=== PATIENT | male | born 1965 | race Two or more races ===

== ENCOUNTER → 2020-06-13 | Outpatient (CLI) | payer BC ==
[2020-06-13 08:40] LABS: CHLORIDE 105 mEq/L (98-107); EOSINOPHILS % 6.9 % (0.0-5.0); HEMATOCRIT. 42.6 % (42.0-52.0); HEMOGLOBIN. 14.5 g/dL (14.0-18.0); LYMPHOCYTES % 41.9 % (20.0-50.0); MEAN CORPUSCULAR HEMOGLOBIN 28.5 pg (28.0-32.0); MEAN CORPUSCULAR VOLUME 83.6 fL (80.0-94.0); MEAN PLATELET VOLUME 9.4 fl (7.4-10.4); MONOCYTES % 10.5 % (2.0-8.0); NEUTROPHILS % 39.7 % (40.0-76.0); PLATELET 184 x1000/uL (130-400); RED BLOOD CELL COUNT 5.09 mill/uL (4.7-6.1); RED CELL DISTRIBUTION WIDTH 13.3 % (11.6-14.6)
[2020-06-13 08:49] LABS: LDL CHOLESTEROL 115 mg/dL (5-100)
[2020-06-13 08:50] LABS: CREATINE KINASE 565 IU/L (39-308); HDL CHOLESTEROL 33 mg/dL (40-59); T4 FREE 0.86 ng/dL (0.76-1.46)
[2020-06-15 04:06] LABS: VITAMIN D 25-OH 29.6 ng/mL (30.0-100.0)
== END | disposition home or self-care (01) ==
LOC: LAB 07:13
DX: Z00.00 Encounter for general adult medical examination without abnormal findings (principal)
CPT/HCPCS: 36415; 80053; 80061; 82306; 82550; 83036; 84153; 84439; 84443; 84480; 84550; 85025; G0103

== ENCOUNTER → 2020-11-14 | Outpatient (CLI) | payer BC ==
[2020-11-14 07:59] LABS: CLARITY URINE CLEAR (CLEAR); COLOR URINE YELLOW (YELLOW); KETONES URINE NEGATIVE (NEGATIVE); LEUKOCYTE ESTERASE URINE NEGATIVE (NEGATIVE); NITRITE URINE NEGATIVE (NEGATIVE); OCCULT BLOOD URINE TRACE (NEGATIVE); PH URINE 6.5 (4.5-8.0); PROTEIN URINE NEGATIVE (NEGATIVE); SPECIFIC GRAVITY URINE 1.018 (1.005-1.030); UROBILINOGEN URINE 0.2 E.U./dL (0.2-1.0)
[2020-11-14 08:07] LABS: BASOPHILS % 1.1 % (0.0-2.0); EOSINOPHILS % 2.5 % (0.0-5.0); HEMATOCRIT. 43.4 % (42.0-52.0); HEMOGLOBIN. 15.1 g/dL (14.0-18.0); LYMPHOCYTES % 39.7 % (20.0-50.0); MEAN CORPUSCULAR HEMOGLOBIN 29.3 pg (28.0-32.0); MEAN CORPUSCULAR VOLUME 83.8 fL (80.0-94.0); MEAN PLATELET VOLUME 8.6 fl (7.4-10.4); MONOCYTES % 8.4 % (2.0-8.0); NEUTROPHILS % 48.3 % (40.0-76.0); PLATELET 218 x1000/uL (130-400); RED BLOOD CELL COUNT 5.18 mill/uL (4.7-6.1); RED CELL DISTRIBUTION WIDTH 13.6 % (11.6-14.6)
[2020-11-14 08:45] LABS: CHLORIDE 103 mEq/L (98-107)
[2020-11-14 09:01] LABS: CREATINE KINASE 530 IU/L (39-308); LDL CHOLESTEROL 147 mg/dL (5-100)
[2020-11-14 09:03] LABS: HDL CHOLESTEROL 31 mg/dL (40-59)
== END | disposition home or self-care (01) ==
LOC: LAB 06:15
DX: I10 Essential (primary) hypertension (principal)
CPT/HCPCS: 36415; 80053; 80061; 81003; 82248; 82550; 84153; 85025; G0103

== ENCOUNTER → 2021-01-21 | Outpatient (CLI) | payer BC ==
[2021-01-21 10:37] LABS: CLARITY URINE CLEAR (CLEAR); COLOR URINE YELLOW (YELLOW); KETONES URINE NEGATIVE (NEGATIVE); LEUKOCYTE ESTERASE URINE NEGATIVE (NEGATIVE); NITRITE URINE NEGATIVE (NEGATIVE); OCCULT BLOOD URINE NEGATIVE (NEGATIVE); PH URINE 7.5 (4.5-8.0); PROTEIN URINE NEGATIVE (NEGATIVE); SPECIFIC GRAVITY URINE 1.019 (1.005-1.030); UROBILINOGEN URINE 0.2 E.U./dL (0.2-1.0)
[2021-01-21 11:11] LABS: EOSINOPHILS % 3.1 % (0.0-5.0); HEMATOCRIT. 44.1 % (42.0-52.0); HEMOGLOBIN. 15.3 g/dL (14.0-18.0); LYMPHOCYTES % 46.7 % (20.0-50.0); MEAN CORPUSCULAR HEMOGLOBIN 28.7 pg (28.0-32.0); MEAN CORPUSCULAR VOLUME 82.9 fL (80.0-94.0); MEAN PLATELET VOLUME 9.5 fl (7.4-10.4); MONOCYTES % 8.5 % (2.0-8.0); NEUTROPHILS % 40.7 % (40.0-76.0); PLATELET 216 x1000/uL (130-400); RED BLOOD CELL COUNT 5.32 mill/uL (4.7-6.1); RED CELL DISTRIBUTION WIDTH 13.2 % (11.6-14.6)
[2021-01-21 11:20] LABS: CHLORIDE 106 mEq/L (98-107)
[2021-01-21 11:28] LABS: LDL CHOLESTEROL 142 mg/dL (5-100)
[2021-01-21 11:30] LABS: HDL CHOLESTEROL 32 mg/dL (40-59)
== END | disposition home or self-care (01) ==
LOC: LAB 10:01
DX: Z00.00 Encounter for general adult medical examination without abnormal findings (principal)
CPT/HCPCS: 36415; 80053; 80061; 81003; 84550; 85025

== ENCOUNTER → 2021-08-12 | Outpatient (CLI) | payer BC ==
[2021-08-12 08:16] LABS: BASOPHILS % 0.8 % (0.0-2.0); EOSINOPHILS % 2.6 % (0.0-5.0); HEMOGLOBIN. 15.4 g/dL (14.0-18.0); LYMPHOCYTES % 40.7 % (20.0-50.0); MEAN CORPUSCULAR HEMOGLOBIN 29.1 pg (28.0-32.0); MEAN CORPUSCULAR VOLUME 83.1 fL (80.0-94.0); MEAN PLATELET VOLUME 9.4 fl (7.4-10.4); MONOCYTES % 10.5 % (2.0-8.0); NEUTROPHILS % 45.4 % (40.0-76.0); PLATELET 194 x1000/uL (130-400); RED BLOOD CELL COUNT 5.29 mill/uL (4.7-6.1); RED CELL DISTRIBUTION WIDTH 13.6 % (11.6-14.6)
[2021-08-12 08:19] LABS: CHLORIDE 108 mEq/L (98-107)
[2021-08-12 08:27] LABS: HDL CHOLESTEROL 33 mg/dL (40-59)
[2021-08-12 08:30] LABS: CREATINE KINASE 365 IU/L (39-308)
[2021-08-12 08:32] LABS: LDL CHOLESTEROL 153 mg/dL (5-100)
[2021-08-12 08:33] LABS: C REACTIVE PROTEIN QUANT 2.5 mg/L (0.0-3.0)
[2021-08-12 08:36] LABS: AMYLASE 48 IU/L (25-115)
[2021-08-12 08:37] LABS: T4 FREE 0.96 ng/dL (0.76-1.46)
[2021-08-12 08:42] LABS: TOTAL IRON BINDING CAPACITY 337 ug/dL (250-450)
[2021-08-12 08:43] LABS: CORTISOL 15.5 ucg/dL; FERRITIN 57 ng/mL (22-322)
[2021-08-12 08:44] LABS: PROSTRATE SPECIFIC AG TOTAL 3.12 ng/mL (0.0-4.0)
[2021-08-12 08:48] LABS: VITAMIN B12 SERUM 272 pg/mL (211-911)
[2021-08-12 08:59] LABS: FOLIC ACID (FOLATE) SERUM > 20.00 ng/mL (>5.38)
[2021-08-13 09:07] LABS: % FREE PSA 22.1 % (.); HOMOCYSTEINE PLASMA 11.2 umol/L (0.0-14.5); PROSTATE SPECIFIC AG TOTAL 3.8 ng/mL (0.0-4.0); PSA FREE 0.84 ng/mL; VITAMIN D 25-OH 39.6 ng/mL (30.0-100.0)
[2021-08-14 19:10] LABS: HUMAN GROWTH HORMONE < 0.1 ng/mL (0.0-10.0); INSULIN-LIKE GROWTH FACTOR 1 191 ng/mL (68-247)
== END | disposition home or self-care (01) ==
LOC: LAB 06:08
DX: Z00.01 Encounter for general adult medical examination with abnormal findings (principal)
CPT/HCPCS: 36415; 80053; 80061; 82150; 82248; 82306; 82533; 82550; 82607; 82626; 82728; 82746; 83003; 83036; 83090; 83525; 83540; 83550; 83695; 83735; 84153; 84154; 84305; 84402; 84439; 84443; 84481; 84550; 85025; 86140; G0103

== ENCOUNTER → 2021-09-30 | Outpatient (CLI) | payer BC | END | disposition home or self-care (01) | LOC: CT 07:13 | DX: N28.1 Cyst of kidney, acquired (principal); R10.30 Lower abdominal pain, unspecified; Z90.89 Acquired absence of other organs | CPT/HCPCS: 74176 ==

== ENCOUNTER → 2022-03-28 | Outpatient (CLI) | payer BC ==
[2022-03-28 11:08] LABS: CLARITY URINE CLEAR (CLEAR); COLOR URINE YELLOW (YELLOW); KETONES URINE NEGATIVE (NEGATIVE); LEUKOCYTE ESTERASE URINE NEGATIVE (NEGATIVE); NITRITE URINE NEGATIVE (NEGATIVE); OCCULT BLOOD URINE NEGATIVE (NEGATIVE); PH URINE 7.5 (4.5-8.0); PROTEIN URINE NEGATIVE (NEGATIVE); SPECIFIC GRAVITY URINE 1.014 (1.005-1.030); UROBILINOGEN URINE 0.2 E.U./dL (0.2-1.0)
[2022-03-28 11:20] LABS: BASOPHILS % 1.4 % (0.0-2.0); EOSINOPHILS % 3.4 % (0.0-5.0); HEMATOCRIT. 46.5 % (42.0-52.0); HEMOGLOBIN. 16.1 g/dL (14.0-18.0); LYMPHOCYTES % 48.7 % (20.0-50.0); MEAN CORPUSCULAR VOLUME 83.8 fL (80.0-94.0); MONOCYTES % 8.4 % (2.0-8.0); NEUTROPHILS % 38.1 % (40.0-76.0); PLATELET 201 x1000/uL (130-400); RED BLOOD CELL COUNT 5.55 mill/uL (4.7-6.1); RED CELL DISTRIBUTION WIDTH 13.5 % (11.6-14.6)
[2022-03-28 11:30] LABS: CHLORIDE 101 mEq/L (98-107)
[2022-03-28 11:45] LABS: HDL CHOLESTEROL 39 mg/dL (40-59); LDL CHOLESTEROL 121 mg/dL (5-100); T4 FREE 0.83 ng/dL (0.76-1.46)
== END | disposition home or self-care (01) ==
LOC: LAB 10:22
DX: Z00.01 Encounter for general adult medical examination with abnormal findings (principal); R79.89 Other specified abnormal findings of blood chemistry; R68.89 Other general symptoms and signs
CPT/HCPCS: 36415; 80053; 80061; 81003; 82306; 83036; 84153; 84439; 84443; 85025; G0103

== ENCOUNTER → 2023-01-12 | Outpatient (CLI) | payer BC ==
[2023-01-12 08:28] LABS: BASOPHILS % 1.1 % (0.0-2.0); EOSINOPHILS % 1.3 % (0.0-5.0); HEMATOCRIT. 44.5 % (42.0-52.0); HEMOGLOBIN. 15.4 g/dL (14.0-18.0); LYMPHOCYTES % 35.1 % (20.0-50.0); MEAN CORPUSCULAR HEMOGLOBIN 29.3 pg (28.0-32.0); MEAN CORPUSCULAR HGB CONC 34.7 g/dL (31.0-37.0); MEAN CORPUSCULAR VOLUME 84.5 fL (80.0-94.0); MEAN PLATELET VOLUME 9.6 fl (7.4-10.4); MONOCYTES % 8.5 % (2.0-8.0); PLATELET 193 x1000/uL (130-400); RED BLOOD CELL COUNT 5.27 mill/uL (4.7-6.1); RED CELL DISTRIBUTION WIDTH 13.2 % (11.6-14.6); WHITE BLOOD COUNT 4.5 x1000/uL (4.5-11.0)
[2023-01-12 08:31] LABS: CLARITY URINE CLEAR (CLEAR); COLOR URINE YELLOW (YELLOW); GLUCOSE URINE NEGATIVE (NEGATIVE); KETONES URINE NEGATIVE (NEGATIVE); LEUKOCYTE ESTERASE URINE NEGATIVE (NEGATIVE); NITRITE URINE NEGATIVE (NEGATIVE); OCCULT BLOOD URINE NEGATIVE (NEGATIVE); PROTEIN URINE NEGATIVE (NEGATIVE); UROBILINOGEN URINE 0.2 E.U./dL (0.2-1.0)
[2023-01-12 08:40] LABS: INDEX HEMOLYSI 1 (1-3)
[2023-01-12 08:45] LABS: CHLORIDE 104 mEq/L (98-107); INDEX HEMOLYSI 1 (1-3); INDEX ICTERIC 1 (1-4); INDEX LIPEMIC 1 (1-3); POTASSIUM 3.5 mEq/L (3.5-5.1); SODIUM 138 mEq/L (136-145)
[2023-01-12 09:00] LABS: ALANINE AMINOTRANSFERASE 38 IU/L (13-61); ALBUMIN 4.1 g/dL (3.4-5.0); ASPARTATE AMINOTRANSFERASE 34 IU/L (15-37); BILIRUBIN TOTAL 0.7 mg/dL (0.1-1.0); CALCIUM 9.1 mg/dL (8.5-10.1); CARBON DIOXIDE 29 mEq/L (21-32); CHOLESTEROL 162 mg/dL (<200); CREATININE 0.9 mg/dL (0.6-1.3); GLUCOSE 103 mg/dL (70-105); HDL CHOLESTEROL 39 mg/dL (40-59); IRON 76 ug/dL (50-175); LDL CHOLESTEROL 113 mg/dL (5-100); T4 FREE 0.84 ng/dL (0.76-1.46); TOTAL IRON BINDING CAPACITY 344 ug/dL (250-450); TRIGLYCERIDE 142 mg/dL (0-150); UREA NITROGEN BLOOD 11 mg/dL (7-21)
[2023-01-12 09:13] LABS: FOLIC ACID (FOLATE) SERUM >20 ng/mL ng/mL (>5.38); VITAMIN B12 SERUM 233 pg/mL (211-911)
[2023-01-12 12:44] LABS: FERRITIN 51 ng/mL (22-322)
[2023-01-12 12:45] LABS: PROSTRATE SPECIFIC AG TOTAL 3.26 ng/mL (0.0-4.0)
[2023-01-12 12:56] LABS: HEPATITIS B SURFACE ANTIGEN NEGATIVE
[2023-01-12 13:20] LABS: HEPATITIS C VIR.AB 0.17 INDEXVAL (0.00-0.80)
[2023-01-12 13:21] LABS: HEPATITIS B CORE AB IGM NEGATIVE
[2023-01-12 13:23] LABS: HEPATITIS A AB IGM NEGATIVE (NEGATIVE)
[2023-01-13 09:07] LABS: *T3 UPTAKE 23 % (24-39)
[2023-01-14 13:06] LABS: THYROXINE BINDING GLOBULIN 19 ug/mL (13-39)
== END | disposition home or self-care (01) ==
LOC: LAB 07:30
PROVIDERS: ATTEND Internal Medicine
DX: Z00.01 Encounter for general adult medical examination with abnormal findings (principal)
CPT/HCPCS: 36415; 80053; 80061; 81003; 82565; 82607; 82728; 82746; 83036; 83540; 83550; 84153; 84439; 84442; 84443; 84479; 84550; 85025; 86705; 86709; 86803; 87340; G0103

== ENCOUNTER → 2024-02-18 | Outpatient (CLI) | payer BC ==
[2024-02-18 08:36] LABS: CLARITY URINE CLEAR (CLEAR); COLOR URINE YELLOW (YELLOW); GLUCOSE URINE NEGATIVE (NEGATIVE); KETONES URINE NEGATIVE (NEGATIVE); LEUKOCYTE ESTERASE URINE NEGATIVE (NEGATIVE); NITRITE URINE NEGATIVE (NEGATIVE); OCCULT BLOOD URINE NEGATIVE (NEGATIVE); PH URINE 6.5 (4.5-8.0); PROTEIN URINE NEGATIVE (NEGATIVE); SPECIFIC GRAVITY URINE 1.016 (1.005-1.030); UROBILINOGEN URINE 0.2 E.U./dL (0.2-1.0)
[2024-02-18 08:42] LABS: EOSINOPHILS % 1.6 % (0.0-5.0); HEMOGLOBIN. 14.3 g/dL (14.0-18.0); LYMPHOCYTES % 41.7 % (20.0-50.0); MEAN CORPUSCULAR HEMOGLOBIN 28.7 pg (28.0-32.0); MEAN CORPUSCULAR VOLUME 84.4 fL (80.0-94.0); MONOCYTES % 7.8 % (2.0-8.0); NEUTROPHILS % 47.9 % (40.0-76.0); PLATELET 209 x1000/uL (130-400); RED BLOOD CELL COUNT 4.97 mill/uL (4.7-6.1); RED CELL DISTRIBUTION WIDTH 13.9 % (11.6-14.6); WHITE BLOOD COUNT 4.6 x1000/uL (4.5-11.0)
[2024-02-18 09:00] LABS: CARBON DIOXIDE 32 mEq/L (21-32); CHLORIDE 103 mEq/L (98-107); POTASSIUM 3.2 mEq/L (3.5-5.1); SODIUM 138 mEq/L (136-145)
[2024-02-18 09:01] LABS: CALCIUM 9.4 mg/dL (8.7-10.4)
[2024-02-18 09:05] LABS: IRON 63 ug/dL (65-175); URIC ACID 6.7 mg/dL (3.7-9.2)
[2024-02-18 09:06] LABS: GLUCOSE 100 mg/dL (70-105); TRIGLYCERIDE 119 mg/dL (0-150); UREA NITROGEN BLOOD 11 mg/dL (9-23)
[2024-02-18 09:07] LABS: ALANINE AMINOTRANSFERASE 32 IU/L (10-49); ALBUMIN 4.6 g/dL (3.2-4.8); ASPARTATE AMINOTRANSFERASE 38 IU/L (<34); C REACTIVE PROTEIN QUANT 1.8 mg/L (0.0-3.0); LDL CHOLESTEROL 172 mg/dL (5-100)
[2024-02-18 09:08] LABS: BILIRUBIN TOTAL 0.9 mg/dL (0.1-1.0); CHOLESTEROL 206 mg/dL (<200); HDL CHOLESTEROL 33 mg/dL (>55); PROTEIN TOTAL 7.8 g/dL (6.0-8.3); TOTAL IRON BINDING CAPACITY 341 ug/dl (250-425)
[2024-02-18 09:10] LABS: THYROID STIMULATING HORMONE 1.28 uIU/mL (0.55-4.78)
[2024-02-18 09:34] LABS: FOLIC ACID (FOLATE) SERUM > 20.00 ng/mL (>5.38)
[2024-02-18 09:35] LABS: FERRITIN 30 ng/mL (22-322)
[2024-02-18 11:29] LABS: HEPATITIS B SURFACE ANTIGEN NEGATIVE (Negative)
[2024-02-18 11:49] LABS: HEPATITIS A AB IGM NEGATIVE (Negative)
[2024-02-18 11:50] LABS: HEPATITIS B CORE AB IGM NEGATIVE (Negative); HEPATITIS C AB NON REACTIVE (Neg) (Negative)
[2024-02-20 09:10] LABS: HOMOCYSTEINE PLASMA 10.9 umol/L (0.0-14.5); PROSTATE SPECIFIC AG TOTAL 4.4 ng/mL (0.0-4.0); T4 THYROXINE 7.7 ug/dL (4.5-12.0); VITAMIN D 25-OH 33.6 ng/mL (30.0-100.0)
== END | disposition home or self-care (01) ==
LOC: LAB 04:11
PROVIDERS: ATTEND Internal Medicine
DX: Z00.01 Encounter for general adult medical examination with abnormal findings (principal); I10 Essential (primary) hypertension; E78.5 Hyperlipidemia, unspecified; D50.9 Iron deficiency anemia, unspecified; R10.30 Lower abdominal pain, unspecified; J30.9 Allergic rhinitis, unspecified; I83.899 Varicose veins of unspecified lower extremity with other complications; M72.2 Plantar fascial fibromatosis; Z79.899 Other long term (current) drug therapy
CPT/HCPCS: 36415; 80053; 80061; 81003; 82306; 82533; 82627; 82728; 82746; 83090; 83525; 83540; 83550; 83735; 84153; 84402; 84436; 84443; 84550; 85025; 86140; 86705; 86709; 87340

== ENCOUNTER → 2024-05-05 | Outpatient (CLI) | payer BC ==
[2024-05-05 12:39] LABS: CHLORIDE 106 mEq/L (98-107); POTASSIUM 3.5 mEq/L (3.5-5.1); SODIUM 142 mEq/L (136-145)
[2024-05-05 12:40] LABS: CALCIUM 9.6 mg/dL (8.7-10.4); CARBON DIOXIDE 30 mEq/L (21-32)
[2024-05-05 12:45] LABS: CREATININE 0.9 mg/dL (0.6-1.3); GLUCOSE 90 mg/dL (70-105); TRIGLYCERIDE 162 mg/dL (0-150); UREA NITROGEN BLOOD 9 mg/dL (9-23)
[2024-05-05 12:46] LABS: LDL CHOLESTEROL 114 mg/dL (5-100)
[2024-05-05 12:47] LABS: ALANINE AMINOTRANSFERASE 27 IU/L (10-49); ALBUMIN 4.3 g/dL (3.2-4.8); ASPARTATE AMINOTRANSFERASE 31 IU/L (<34); BILIRUBIN TOTAL 0.8 mg/dL (0.1-1.0); CHOLESTEROL 165 mg/dL (<200); HDL CHOLESTEROL 31 mg/dL (>55); PROTEIN TOTAL 7.7 g/dL (6.0-8.3)
[2024-05-05 13:51] LABS: RHEUMATOID FACTOR SCREEN POSITIVE (NEGATIVE)
[2024-05-07 15:07] LABS: ANTI-NUCLEAR ANTIBODIES DIRECT Negative (Negative)
[2024-05-08 04:10] LABS: PROSTATE SPECIFIC AG TOTAL 4.4 ng/mL (0.0-4.0)
== END | disposition home or self-care (01) ==
LOC: LAB 11:45
PROVIDERS: ATTEND Internal Medicine
DX: Z00.01 Encounter for general adult medical examination with abnormal findings (principal)
CPT/HCPCS: 36415; 80053; 80061; 82565; 83036; 84153; 85651; 86038; 86430

== ENCOUNTER → 2024-06-07 | Outpatient (CLI) | payer BC | END | disposition home or self-care (01) | LOC: US 09:16 | PROVIDERS: ATTEND Internal Medicine | DX: N40.0 Benign prostatic hyperplasia without lower urinary tract symptoms (principal); R97.20 Elevated prostate specific antigen [PSA] | CPT/HCPCS: 76872 ==